=== PATIENT | female | born 1955 | race Caucasian/White ===

== ENCOUNTER 2019-03-15 09:22 | Inpatient (IN) ==
[2019-03-15 10:21] LABS: INR 1.2; Prothrombin Time 13.6 Seconds (9.4-12.1)
[2019-03-15 10:25] LABS: Basophils # 0.1 K/mcL (0.0-0.2); Basophils % 1.1 %; Eosinophils # 0.1 K/mcL (0.0-0.6); Hematocrit 37.8 % (35.3-44.9); Hemoglobin 12.5 g/dL (11.5-15.4); Immature Granulocytes % 0.2 % (0-4); Lymphocytes # 0.9 K/mcL (0.6-4.6); Lymphocytes % 19.1 %; Mean Corpuscular HGB Conc 33.1 g/dL (31.6-35.5); Mean Corpuscular Hemoglobin 32.8 pg (28.0-33.3); Mean Corpuscular Volume 99.2 fL (83.0-100.0); Mean Platelet Volume 11.9 fL (9.4-12.4); Monocytes # 0.4 K/mcL (0.0-1.3); Monocytes % 7.7 %; Neutrophils # 3.2 K/mcL (1.6-8.9); Platelet Count 207 K/mcL (140-400); Red Blood Count 3.81 M/mcL (3.82-4.97); Red Cell Distribution Width 14.6 % (11.5-14.5); Segmented Neutrophils % 69.9 %; White Blood Count 4.6 K/mcL (4.3-11.1)
[2019-03-15 10:27] LABS: Alanine Aminotransferase 47 Units/L (7-52); Albumin 3.8 g/dL (3.5-5.7); Albumin/Globulin Ratio 1.4 (1.1-2.2); Alkaline Phosphatase 95 Units/L (34-104); Aspartate Amino Transferase 48 Units/L (13-39); BUN/Creatinine Ratio 30 (6-26); Bilirubin,Total 0.5 mg/dL (0.3-1.0); Blood Urea Nitrogen 30 mg/dL (8-23); Calcium 8.6 mg/dL (8.6-10.3); Carbon Dioxide 30 mEq/L (23-29); Chloride 98 mEq/L (98-107); Globulin 2.7 g/dL (2.4-3.5); Glucose 109 mg/dL (70-105); Osmolality,Calculated 301 (280-300); Potassium 3.3 mEq/L (3.5-5.1); Sodium 142 mEq/L (136-145); Total Protein 6.5 g/dL (6.4-8.9); Troponin I 0.04 ng/mL (< 0.04); eGFR For African Americans > 60 (> 60); eGFR For Non-African Americans 56 (> 60)
[2019-03-15] MEDS ORDERED: Aspirin 325 MG TABLET PO ONE (10:33)
[2019-03-15] MEDS ORDERED: Furosemide 40 MG/4 ML VIAL IVP ONE (10:34)
[2019-03-15] MEDS ORDERED: Naloxone 0.4 MG/ML INJ IVP PRN (11:47)
[2019-03-15] MEDS ORDERED: Ipratropium/Albuterol Neb 3 ML IH PRN (15:38)
[2019-03-15] MEDS: Furosemide 40 MG/4 ML VIAL IVP SCH (17:08)
[2019-03-16 01:53] LABS: Basophils # 0.1 K/mcL (0.0-0.2); Basophils % 0.8 %; Eosinophils # 0.1 K/mcL (0.0-0.6); Eosinophils % 1.5 %; Hematocrit 33.8 % (35.3-44.9); Immature Granulocytes % 0.2 % (0-4); Lymphocytes # 1.1 K/mcL (0.6-4.6); Lymphocytes % 16.1 %; Mean Corpuscular HGB Conc 31.7 g/dL (31.6-35.5); Mean Corpuscular Hemoglobin 32.5 pg (28.0-33.3); Mean Corpuscular Volume 102.7 fL (83.0-100.0); Mean Platelet Volume 11.9 fL (9.4-12.4); Monocytes # 0.3 K/mcL (0.0-1.3); Monocytes % 4.4 %; Neutrophils # 5.1 K/mcL (1.6-8.9); Platelet Count 187 K/mcL (140-400); Red Blood Count 3.29 M/mcL (3.82-4.97); Red Cell Distribution Width 14.4 % (11.5-14.5); White Blood Count 6.6 K/mcL (4.3-11.1)
[2019-03-16 01:57] LABS: Hemoglobin 10.7 g/dL (11.5-15.4)
[2019-03-16 02:14] LABS: Calcium 8.2 mg/dL (8.6-10.3); Potassium 3.5 mEq/L (3.5-5.1)
[2019-03-16] MEDS: Furosemide 40 MG/4 ML VIAL IVP SCH ×2 (08:10→17:04)
[2019-03-16] MEDS: Aspirin Enteric Coated 81 MG Tablet PO SCH (08:10)
[2019-03-16 14:28] LABS: Hematocrit 40.7 % (35.3-44.9)
[2019-03-16] MEDS: Pantoprazole 40 MG VIAL IVP SCH (17:04)
[2019-03-17 05:06] LABS: Basophils # 0.1 K/mcL (0.0-0.2); Basophils % 1.1 %; Eosinophils # 0.1 K/mcL (0.0-0.6); Eosinophils % 1.7 %; Hematocrit 33.2 % (35.3-44.9); Immature Granulocytes % 0.4 % (0-4); Lymphocytes # 1.2 K/mcL (0.6-4.6); Lymphocytes % 25.6 %; Mean Corpuscular HGB Conc 31.9 g/dL (31.6-35.5); Mean Corpuscular Hemoglobin 32.1 pg (28.0-33.3); Mean Corpuscular Volume 100.6 fL (83.0-100.0); Monocytes # 0.3 K/mcL (0.0-1.3); Monocytes % 7.1 %; Neutrophils # 3.1 K/mcL (1.6-8.9); Platelet Count 187 K/mcL (140-400); Red Cell Distribution Width 14.3 % (11.5-14.5); Segmented Neutrophils % 64.1 %; White Blood Count 4.8 K/mcL (4.3-11.1)
[2019-03-17 05:07] LABS: Hemoglobin 10.6 g/dL (11.5-15.4)
[2019-03-17 05:27] LABS: BUN/Creatinine Ratio 26 (6-26); Blood Urea Nitrogen 22 mg/dL (8-23); Calcium 8.2 mg/dL (8.6-10.3); Carbon Dioxide 32 mEq/L (23-29); Chloride 102 mEq/L (98-107); Glucose 110 mg/dL (70-105); Osmolality,Calculated 290 (280-300); Potassium 3.5 mEq/L (3.5-5.1); Sodium 138 mEq/L (136-145); eGFR For African Americans > 60 (> 60); eGFR For Non-African Americans > 60 (> 60)
[2019-03-17] MEDS: Pantoprazole 40 MG VIAL IVP SCH ×2 (06:06→18:09)
[2019-03-17] MEDS: Furosemide 40 MG/4 ML VIAL IVP SCH ×2 (09:26→18:09)
[2019-03-17] MEDS ORDERED: Propofol 500 MG/50 ML INFUS..BTL ONE (14:39)
[2019-03-17] MEDS ORDERED: Lidocaine -MPF 2% 2 ML VIAL ONE (14:39)
[2019-03-17] MEDS: Aspirin Enteric Coated 81 MG Tablet PO SCH (16:00)
[2019-03-17] MEDS: Cyanocobalamin (B-12) 1,000 MCG TABLET PO SCH (16:00)
[2019-03-18 03:15] LABS: Hematocrit 33.5 % (35.3-44.9); Hemoglobin 10.6 g/dL (11.5-15.4); Mean Corpuscular HGB Conc 31.6 g/dL (31.6-35.5); Mean Corpuscular Hemoglobin 32.6 pg (28.0-33.3); Mean Corpuscular Volume 103.1 fL (83.0-100.0); Mean Platelet Volume 12.1 fL (9.4-12.4); Platelet Count 185 K/mcL (140-400); Red Blood Count 3.25 M/mcL (3.82-4.97); White Blood Count 5.3 K/mcL (4.3-11.1)
[2019-03-18 03:28] LABS: BUN/Creatinine Ratio 26 (6-26); Blood Urea Nitrogen 23 mg/dL (8-23); Calcium 8.2 mg/dL (8.6-10.3); Carbon Dioxide 38 mEq/L (23-29); Chloride 98 mEq/L (98-107); Glucose 85 mg/dL (70-105); Magnesium 1.7 mg/dL (1.6-2.6); Osmolality,Calculated 293 (280-300); Potassium 3.3 mEq/L (3.5-5.1); Sodium 140 mEq/L (136-145); eGFR For African Americans > 60 (> 60); eGFR For Non-African Americans > 60 (> 60)
[2019-03-18] MEDS: Pantoprazole 40 MG VIAL IVP SCH (06:27)
[2019-03-18] MEDS: Aspirin Enteric Coated 81 MG Tablet PO SCH (09:44)
[2019-03-18] MEDS: Cyanocobalamin (B-12) 1,000 MCG TABLET PO SCH (09:45)
[2019-03-18] MEDS: Furosemide 40 MG/4 ML VIAL IVP SCH (09:45)
[2019-03-18 10:36] VITALS: BP 114/90
[2019-03-19] MEDS ORDERED: Metoprolol XL (24 HR) Succ 25 MG TAB.ER.24H PO SCH (09:00)
== END 2019-03-18 16:00 | disposition home or self-care (01) | DRG 292 ==
LOC: 2NENU 09:22 → EMEROOARM 09:22 → SUATTDRO 11:44 → 2NENU 12:42
PROVIDERS: ADMIT Internal Medicine; ATTEND Internal Medicine

== ENCOUNTER 2019-11-30 11:06 | Inpatient (IN) ==
[2019-11-30] MEDS ORDERED: Morphine Sulfate 2 MG/ML SYRINGE IVP STA (11:16)
[2019-11-30] MEDS ORDERED: 0.9 % Sodium Chloride 1,000 ML IVC ONE (11:16)
[2019-11-30] MEDS ORDERED: Isovue-370 500 ML BOTTLE IVP ONE (11:17)
[2019-11-30 11:35] LABS: Eosinophils % 0.2 %; Red Blood Count 6.32 M/mcL (3.82-4.97); Red Cell Distribution Width 21.4 % (11.5-14.5); Segmented Neutrophils % 81.7 %
[2019-11-30 11:37] LABS: Basophils # 0.1 K/mcL (0.0-0.2); Basophils % 0.5 %; Hemoglobin 18.7 g/dL (11.5-15.4); Immature Granulocytes % 0.4 % (0-4); Immature Platelets 10.5 % (1.1-6.1); Lymphocytes # 1.5 K/mcL (0.6-4.6); Lymphocytes % 11.8 %; Mean Corpuscular Hemoglobin 29.6 pg (28.0-33.3); Mean Corpuscular Volume 92.4 fL (83.0-100.0); Monocytes # 0.7 K/mcL (0.0-1.3); Monocytes % 5.4 %; Neutrophils # 10.5 K/mcL (1.6-8.9); Platelet Count 173 K/mcL (140-400); White Blood Count 12.9 K/mcL (4.3-11.1)
[2019-11-30 11:41] LABS: Hematocrit 58.4 % (35.3-44.9)
[2019-11-30] MEDS ORDERED: Ondansetron 4 MG/2 ML VIAL IVP ONE (11:41)
[2019-11-30 11:53] LABS: Alanine Aminotransferase 34 Units/L (7-52); Albumin 4.6 g/dL (3.5-5.7); Albumin/Globulin Ratio 1.4 (1.1-2.2); Alkaline Phosphatase 89 Units/L (34-104); Aspartate Amino Transferase 32 Units/L (13-39); BUN/Creatinine Ratio 44 (6-26); Bilirubin,Direct 0.2 mg/dL (0.0-0.2); Bilirubin,Indirect 0.5 mg/dL (0.0-1.0); Bilirubin,Total 0.7 mg/dL (0.3-1.0); Blood Urea Nitrogen 42 mg/dL (8-23); Calcium 11.2 mg/dL (8.6-10.3); Carbon Dioxide 25 mEq/L (23-29); Chloride 96 mEq/L (98-107); Globulin 3.3 g/dL (2.4-3.5); Glucose 182 mg/dL (70-105); Lipase 13 Units/L (11-82); Osmolality,Calculated 289 (280-300); Potassium 5.7 mEq/L (3.5-5.1); Sodium 132 mEq/L (136-145); Total Protein 7.9 g/dL (6.4-8.9); eGFR For African Americans > 60 (> 60); eGFR For Non-African Americans 59 (> 60)
[2019-11-30 11:55] LABS: Bilirubin,Urine Small (Negative); Blood,Urine Negative (Negative); Calcium Oxalate Crystals,Urine Present; Clarity,Urine Turbid (Clear); Color,Urine Yellow (Yellow); Glucose,Urine (UA) Normal (Normal); Hyaline Casts,Urine Moderate per lpf (None Seen); Ketones,Urine Trace mg/dL (Negative); Leukocyte Esterase,Urine Large (Negative); Mucus,Urine Few per lpf (None-Few); Nitrite,Urine Negative (Negative); Protein,Urine >=600 mg/dL (Neg-Trace); Renal Epithelial Cells,Urine Few per hpf (None-Few); Specific Gravity,Urine > 1.030 (1.010-1.025); Squamous Epithelial Cell,Urine Few per hpf (None-Few); Transitional Epi Cells,Urine Few per hpf (None-Few); WBC,Urine 50-100 per hpf (0-3)
[2019-11-30] MEDS ORDERED: 0.9 % Sodium Chloride 500 ML IVC ONE (12:16)
[2019-11-30] MEDS ORDERED: cefTRIAXone 1,000 MG in Water for inj. (sterile) 10 ML IVP ONE (12:16)
[2019-11-30] MEDS ORDERED: Calcium Gluconate 1gm/50mL 1 GM/50 ML BAG IVPB ONE (12:19)
[2019-11-30] MEDS ORDERED: Acetaminophen 325 MG TABLET PO PRN (14:01)
[2019-11-30] MEDS ORDERED: Naloxone 0.4 MG/ML INJ IVP PRN (14:01)
[2019-11-30] MEDS ORDERED: Ondansetron 4 MG/2 ML VIAL IVP PRN (14:01)
[2019-11-30 14:19] LABS: BUN/Creatinine Ratio 50 (6-26); Blood Urea Nitrogen 41 mg/dL (8-23); Calcium 9.6 mg/dL (8.6-10.3); Carbon Dioxide 25 mEq/L (23-29); Chloride 102 mEq/L (98-107); Glucose 117 mg/dL (70-105); Osmolality,Calculated 285 (280-300); Potassium 5.9 mEq/L (3.5-5.1); Sodium 132 mEq/L (136-145); eGFR For African Americans > 60 (> 60); eGFR For Non-African Americans > 60 (> 60)
[2019-11-30] MEDS ORDERED: D5% in Water 1,000 ML IVC PRN (15:04)
[2019-11-30] MEDS ORDERED: Dextrose Gel 15 GM/37.5 ML TUBE PO PRN ×2 (15:04)
[2019-11-30] MEDS ORDERED: *HR* Dextrose 50 % in Water (Vial) 50 ML VIAL IVP PRN (15:04)
[2019-11-30] MEDS: 0.9 % Sodium Chloride 1,000 ML IVC SCH (15:14)
[2019-11-30] MEDS ORDERED: Ipratropium/Albuterol Neb 3 ML IH PRN (15:24)
[2019-11-30] MEDS ORDERED: Lidocaine Viscous Oral Soln 15 ML SOLUTION MM STA (15:57)
[2019-11-30] MEDS ORDERED: Piperacillin/Tazobactam 3.375 GM in 0.9 % Sodium Chloride Mini Bag 100 ML IVPB SCH (16:00)
[2019-11-30] MEDS: Morphine Sulfate 2 MG/ML SYRINGE IVP PRN ×2 (16:37→22:53)
[2019-11-30 16:38] LABS: Adenovirus Not Detected (Not Detect); Coronavirus 229E Not Detected (Not Detect); Coronavirus HKU1 Not Detected (Not Detect); Coronavirus NL63 Not Detected (Not Detect); Coronavirus OC43 Not Detected (Not Detect)
[2019-11-30 16:40] LABS: Bordetella Pertussis Not Detected (Not Detect); Human Metapneumovirus Not Detected (Not Detect); Human Rhinovirus/Enterovirus Not Detected (Not Detect); Influenza A Subtype 2009 H1 Not Detected (Not Detect); Influenza B Not Detected (Not Detect); Parainfluenza Virus 1 Not Detected (Not Detect); Parainfluenza Virus 2 Not Detected (Not Detect); Parainfluenza Virus 3 Not Detected (Not Detect); Parainfluenza Virus 4 Not Detected (Not Detect); Respiratory Syncytial Virus Not Detected (Not Detect); SARS-CoV-2 Not Detected (Not Detect)
[2019-11-30 16:41] LABS: Chlamydophila pneumoniae Not Detected (Not Detect); Mycoplasma pneumoniae Not Detected (Not Detect)
[2019-11-30 18:22] LABS: Red Cell Distribution Width 21.2 % (11.5-14.5)
[2019-11-30 18:24] LABS: Basophils # 0.1 K/mcL (0.0-0.2); Basophils % 0.5 %; Eosinophils % 0.4 %; Hematocrit 51.8 % (35.3-44.9); Hemoglobin 16.8 g/dL (11.5-15.4); Immature Granulocytes % 0.3 % (0-4); Immature Platelets 10.1 % (1.1-6.1); Lymphocytes # 1.6 K/mcL (0.6-4.6); Lymphocytes % 15.2 %; Mean Corpuscular HGB Conc 32.4 g/dL (31.6-35.5); Mean Corpuscular Hemoglobin 29.8 pg (28.0-33.3); Monocytes # 0.7 K/mcL (0.0-1.3); Monocytes % 6.7 %; Neutrophils # 7.9 K/mcL (1.6-8.9); Platelet Count 152 K/mcL (140-400); Red Blood Count 5.63 M/mcL (3.82-4.97); Segmented Neutrophils % 76.9 %; White Blood Count 10.3 K/mcL (4.3-11.1)
[2019-11-30 18:39] LABS: BUN/Creatinine Ratio 55 (6-26); Blood Urea Nitrogen 38 mg/dL (8-23); Calcium 9.5 mg/dL (8.6-10.3); Carbon Dioxide 22 mEq/L (23-29); Chloride 102 mEq/L (98-107); Glucose 127 mg/dL (70-105); Magnesium 1.3 mg/dL (1.6-2.6); Osmolality,Calculated 283 (280-300); Potassium 4.9 mEq/L (3.5-5.1); Sodium 131 mEq/L (136-145); eGFR For African Americans > 60 (> 60); eGFR For Non-African Americans > 60 (> 60)
[2019-11-30] MEDS: Insulin LISPRO 300 UNITS/3 ML VIAL SQ SCH (18:40)
[2019-11-30] MEDS ORDERED: Heparin 1,000 UNITS/500 mL 500 ML ONE (18:41)
[2019-11-30] MEDS: Piperacillin/Tazobactam 3.375 GM in 0.9 % Sodium Chloride Mini Bag 100 ML IVPB SCH (18:41)
[2019-11-30 18:46] LABS: Troponin I < 0.03 ng/mL (< 0.04)
[2019-11-30 18:58] LABS: Thyroid Stimulating Hormone 7.499 mcIU/mL (0.340-5.600)
[2019-11-30] MEDS ORDERED: *HR* Norepinephrine 4 MG/4 ML VIAL IVC ONE (19:24)
[2019-11-30] MEDS ORDERED: Lidocaine -MPF 2% 2 ML VIAL ONE (20:37)
[2019-11-30] MEDS ORDERED: Sacubitril/Valsartan 97/103 MG 1 TAB TABLET PO SCH (21:00)
[2019-12-01] MEDS ORDERED: Ondansetron 4 MG/2 ML VIAL ONE (00:22)
[2019-12-01] MEDS ORDERED: Lidocaine -MPF 2% 2 ML VIAL ONE (00:22)
[2019-12-01] MEDS ORDERED: Dexamethasone 4 MG/ML VIAL ONE (00:22)
[2019-12-01] MEDS ORDERED: *HR* Etomidate 40 MG/20 ML VIAL IVP ONE (00:23)
[2019-12-01] MEDS ORDERED: *HR* FentaNYL (PF) 100 MCG/2 ML VIAL ONE (00:24)
[2019-12-01] MEDS ORDERED: EPHEDrine 50 MG/ML VIAL ONE (00:30)
[2019-12-01] MEDS: Piperacillin/Tazobactam 3.375 GM in 0.9 % Sodium Chloride Mini Bag 100 ML IVPB SCH ×4 (00:31→23:23)
[2019-12-01] MEDS: Insulin LISPRO 300 UNITS/3 ML VIAL SQ SCH ×3 (00:41→18:07)
[2019-12-01] MEDS ORDERED: Albumin Human 5% 12.5 GM/250 ML IV.SOLN IVPB ONE (01:21)
[2019-12-01] MEDS ORDERED: *HR* EPINEPHrine 1 MG/10 ML SYRINGE ONE (02:02)
[2019-12-01] MEDS ORDERED: Albumin Human 5% 12.5 GM/250 ML IV.SOLN ONE (03:04)
[2019-12-01] MEDS ORDERED: *HR* Labetalol 20 MG/4 ML SYRINGE IVP PRN (04:02)
[2019-12-01] MEDS ORDERED: *HR* Promethazine 25 MG/ML VIAL IVP PRN (04:02)
[2019-12-01] MEDS ORDERED: *HR* HYDROMORPHONE 2 MG/ML VIAL ONE (04:24)
[2019-12-01] MEDS: *HR* HYDROmorphone (PF) 1 MG/ML SYRINGE IVP PRN ×2 (04:55→05:07)
[2019-12-01] MEDS: 0.9 % Sodium Chloride 1,000 ML IVC SCH (06:00)
[2019-12-01 06:21] LABS: Basophils % 0.3 %; Eosinophils % 0.2 %; Hematocrit 44.1 % (35.3-44.9); Lymphocytes # 0.6 K/mcL (0.6-4.6); Lymphocytes % 9.6 %; Mean Corpuscular HGB Conc 31.5 g/dL (31.6-35.5); Mean Corpuscular Hemoglobin 29.8 pg (28.0-33.3); Mean Corpuscular Volume 94.4 fL (83.0-100.0); Mean Platelet Volume 10.6 fL (9.4-12.4); Monocytes # 0.2 K/mcL (0.0-1.3); Monocytes % 4.1 %; Platelet Count 131 K/mcL (140-400); Red Blood Count 4.67 M/mcL (3.82-4.97); Red Cell Distribution Width 21.1 % (11.5-14.5); Segmented Neutrophils % 85.8 %; White Blood Count 5.8 K/mcL (4.3-11.1)
[2019-12-01 06:23] LABS: Hemoglobin 13.9 g/dL (11.5-15.4)
[2019-12-01] MEDS ORDERED: Dextrose Gel 15 GM/37.5 ML TUBE PO PRN ×2 (06:31)
[2019-12-01] MEDS ORDERED: Naloxone 0.4 MG/ML INJ IVP PRN (06:31)
[2019-12-01] MEDS ORDERED: Morphine PCA 30 MG/ 30 ML 30 ML PCA.VIAL IVC PRN (06:31)
[2019-12-01] MEDS ORDERED: D5% in Water 1,000 ML IVC PRN (06:31)
[2019-12-01] MEDS ORDERED: 0.9 % Sodium Chloride 1,000 ML IVC SCH ×2 (06:31→14:00)
[2019-12-01] MEDS ORDERED: Ipratropium/Albuterol Neb 3 ML IH PRN (06:31)
[2019-12-01] MEDS ORDERED: Ondansetron 4 MG/2 ML VIAL IVP PRN (06:31)
[2019-12-01] MEDS ORDERED: *HR* Dextrose 50 % in Water (Vial) 50 ML VIAL IVP PRN (06:31)
[2019-12-01 06:38] LABS: BUN/Creatinine Ratio 54 (6-26); Blood Urea Nitrogen 37 mg/dL (8-23); Calcium 8.6 mg/dL (8.6-10.3); Carbon Dioxide 23 mEq/L (23-29); Chloride 103 mEq/L (98-107); Glucose 173 mg/dL (70-105); Magnesium 1.6 mg/dL (1.6-2.6); Osmolality,Calculated 291 (280-300); Potassium 4.8 mEq/L (3.5-5.1); Sodium 134 mEq/L (136-145); eGFR For African Americans > 60 (> 60); eGFR For Non-African Americans > 60 (> 60)
[2019-12-01] MEDS: *HR* Heparin 5,000 UNIT/ML VIAL SQ SCH ×2 (06:59→18:06)
[2019-12-01] MEDS: *HR* Metoprolol 5 MG/5 ML VIAL IVP SCH ×3 (07:04→18:07)
[2019-12-01] MEDS: Levothyroxine Sodium 100 MCG VIAL IVP SCH (08:26)
[2019-12-01] MEDS: Pantoprazole 40 MG VIAL IVP SCH (08:26)
[2019-12-01] MEDS: Furosemide 40 MG/4 ML VIAL IVP SCH (08:26)
[2019-12-01] MEDS: Nicotine 14 MG PATCH.TD24 TD SCH (08:28)
[2019-12-01] MEDS: Acetaminophen IV 1,000 MG/100 ML INFUS..BTL IVPB SCH ×4 (08:30→23:22)
[2019-12-01] MEDS ORDERED: Multivit/Ca/Min/Fe/FA 1 TAB TABLET PO SCH (09:00)
[2019-12-01] MEDS ORDERED: Aspirin Enteric Coated 81 MG Tablet PO SCH (09:00)
[2019-12-01] MEDS ORDERED: Nicotine 14 MG PATCH.TD24 TD SCH (09:00)
[2019-12-01] MEDS ORDERED: Cyanocobalamin (B-12) 1,000 MCG TABLET PO SCH (09:00)
[2019-12-01] MEDS ORDERED: Spironolactone 25 MG TABLET PO SCH (09:00)
[2019-12-01] MEDS ORDERED: rOPINIRole 0.25 MG TABLET PO SCH (09:00)
[2019-12-01] MEDS ORDERED: Metoprolol XL (24 HR) Succ 25 MG TAB.ER.24H PO SCH (09:00)
[2019-12-01 11:28] LABS: Estimated Average Glucose 240 mg/dl
[2019-12-02] MEDS: 0.9 % Sodium Chloride 1,000 ML IVC SCH ×2 (00:11→05:54)
[2019-12-02] MEDS: *HR* Metoprolol 5 MG/5 ML VIAL IVP SCH ×5 (00:12→23:47)
[2019-12-02] MEDS: Insulin LISPRO 300 UNITS/3 ML VIAL SQ SCH ×6 (00:17→20:28)
[2019-12-02 02:01] LABS: Basophils % 0.4 %; Eosinophils % 0.4 %; Hematocrit 43.6 % (35.3-44.9); Immature Granulocytes % 0.1 % (0-4); Immature Platelets 9.5 % (1.1-6.1); Lymphocytes % 14.1 %; Mean Corpuscular HGB Conc 32.1 g/dL (31.6-35.5); Mean Corpuscular Hemoglobin 29.9 pg (28.0-33.3); Mean Corpuscular Volume 93.2 fL (83.0-100.0); Monocytes # 0.4 K/mcL (0.0-1.3); Monocytes % 6.5 %; Neutrophils # 5.3 K/mcL (1.6-8.9); Platelet Count 105 K/mcL (140-400); Red Blood Count 4.68 M/mcL (3.82-4.97); Red Cell Distribution Width 20.7 % (11.5-14.5); Segmented Neutrophils % 78.5 %; White Blood Count 6.8 K/mcL (4.3-11.1)
[2019-12-02 02:23] LABS: BUN/Creatinine Ratio 47 (6-26); Blood Urea Nitrogen 29 mg/dL (8-23); Calcium 8.3 mg/dL (8.6-10.3); Carbon Dioxide 24 mEq/L (23-29); Chloride 101 mEq/L (98-107); Glucose 96 mg/dL (70-105); Magnesium 1.7 mg/dL (1.6-2.6); Osmolality,Calculated 284 (280-300); Potassium 4.1 mEq/L (3.5-5.1); Sodium 134 mEq/L (136-145); eGFR For African Americans > 60 (> 60); eGFR For Non-African Americans > 60 (> 60)
[2019-12-02 03:46] LABS: Anisocytosis 1+ (Not Present); Platelet Estimate Slight Decrease (Normal)
[2019-12-02] MEDS: *HR* Heparin 5,000 UNIT/ML VIAL SQ SCH ×2 (05:37→17:30)
[2019-12-02] MEDS: Acetaminophen IV 1,000 MG/100 ML INFUS..BTL IVPB SCH ×4 (05:45→23:45)
[2019-12-02] MEDS: Levothyroxine Sodium 100 MCG VIAL IVP SCH (09:16)
[2019-12-02] MEDS: Furosemide 40 MG/4 ML VIAL IVP SCH (09:16)
[2019-12-02] MEDS: Pantoprazole 40 MG VIAL IVP SCH (09:16)
[2019-12-02] MEDS: Piperacillin/Tazobactam 3.375 GM in 0.9 % Sodium Chloride Mini Bag 100 ML IVPB SCH ×3 (09:17→23:46)
[2019-12-02] MEDS: Nicotine 14 MG PATCH.TD24 TD SCH (09:18)
[2019-12-03 05:41] LABS: BUN/Creatinine Ratio 33 (6-26); Blood Urea Nitrogen 20 mg/dL (8-23); Calcium 8.4 mg/dL (8.6-10.3); Carbon Dioxide 28 mEq/L (23-29); Chloride 99 mEq/L (98-107); Glucose 118 mg/dL (70-105); Osmolality,Calculated 280 (280-300); Potassium 3.5 mEq/L (3.5-5.1); Sodium 133 mEq/L (136-145); eGFR For African Americans > 60 (> 60); eGFR For Non-African Americans > 60 (> 60)
[2019-12-03] MEDS: *HR* Metoprolol 5 MG/5 ML VIAL IVP SCH ×4 (06:01→23:34)
[2019-12-03] MEDS: Acetaminophen IV 1,000 MG/100 ML INFUS..BTL IVPB SCH ×4 (06:02→23:51)
[2019-12-03] MEDS: *HR* Heparin 5,000 UNIT/ML VIAL SQ SCH ×2 (06:02→16:31)
[2019-12-03] MEDS: 0.9 % Sodium Chloride 1,000 ML IVC SCH (06:08)
[2019-12-03] MEDS: Insulin LISPRO 300 UNITS/3 ML VIAL SQ SCH ×4 (08:01→21:49)
[2019-12-03] MEDS: Furosemide 40 MG/4 ML VIAL IVP SCH (09:19)
[2019-12-03] MEDS: Pantoprazole 40 MG VIAL IVP SCH (09:19)
[2019-12-03] MEDS: Piperacillin/Tazobactam 3.375 GM in 0.9 % Sodium Chloride Mini Bag 100 ML IVPB SCH ×3 (09:19→23:45)
[2019-12-03] MEDS: Levothyroxine Sodium 100 MCG VIAL IVP SCH (09:19)
[2019-12-03] MEDS: Nicotine 14 MG PATCH.TD24 TD SCH (09:20)
[2019-12-04] MEDS: 0.9 % Sodium Chloride 1,000 ML IVC SCH (01:46)
[2019-12-04 02:57] LABS: BUN/Creatinine Ratio 28 (6-26); Blood Urea Nitrogen 15 mg/dL (8-23); Calcium 8.4 mg/dL (8.6-10.3); Carbon Dioxide 28 mEq/L (23-29); Chloride 99 mEq/L (98-107); Glucose 95 mg/dL (70-105); Magnesium 1.4 mg/dL (1.6-2.6); Osmolality,Calculated 277 (280-300); Potassium 3.3 mEq/L (3.5-5.1); Sodium 133 mEq/L (136-145); eGFR For African Americans > 60 (> 60); eGFR For Non-African Americans > 60 (> 60)
[2019-12-04] MEDS: *HR* Metoprolol 5 MG/5 ML VIAL IVP SCH ×2 (06:27→11:42)
[2019-12-04] MEDS: Acetaminophen IV 1,000 MG/100 ML INFUS..BTL IVPB SCH ×2 (06:36→14:14)
[2019-12-04] MEDS: *HR* Heparin 5,000 UNIT/ML VIAL SQ SCH ×2 (06:37→17:24)
[2019-12-04] MEDS: Insulin LISPRO 300 UNITS/3 ML VIAL SQ SCH ×4 (09:16→20:52)
[2019-12-04] MEDS: Nicotine 14 MG PATCH.TD24 TD SCH (09:18)
[2019-12-04] MEDS: Furosemide 40 MG/4 ML VIAL IVP SCH (09:18)
[2019-12-04] MEDS: Levothyroxine Sodium 100 MCG VIAL IVP SCH (09:18)
[2019-12-04] MEDS: Pantoprazole 40 MG VIAL IVP SCH (09:19)
[2019-12-04] MEDS: Piperacillin/Tazobactam 3.375 GM in 0.9 % Sodium Chloride Mini Bag 100 ML IVPB SCH (19:38)
[2019-12-04] MEDS ORDERED: hydrALAZINE 25 MG TABLET PO SCH (21:00)
[2019-12-05] MEDS: *HR* Heparin 5,000 UNIT/ML VIAL SQ SCH (05:38)
[2019-12-05] MEDS: Nicotine 14 MG PATCH.TD24 TD SCH (08:13)
[2019-12-05] MEDS: Insulin LISPRO 300 UNITS/3 ML VIAL SQ SCH (08:19)
[2019-12-05] MEDS ORDERED: Bumetanide 1 MG TABLET PO SCH (09:00)
[2019-12-05] MEDS ORDERED: Metoprolol XL (24 HR) Succ 25 MG TAB.ER.24H PO SCH (09:00)
[2019-12-05 09:09] LABS: Hematocrit 47.2 % (35.3-44.9); Hemoglobin 15.1 g/dL (11.5-15.4); Mean Corpuscular Hemoglobin 29.7 pg (28.0-33.3); Mean Corpuscular Volume 92.9 fL (83.0-100.0); Mean Platelet Volume 10.3 fL (9.4-12.4); Platelet Count 210 K/mcL (140-400); Red Blood Count 5.08 M/mcL (3.82-4.97); Red Cell Distribution Width 19.9 % (11.5-14.5); White Blood Count 6.5 K/mcL (4.3-11.1)
[2019-12-05 09:12] LABS: BUN/Creatinine Ratio 22 (6-26); Blood Urea Nitrogen 15 mg/dL (8-23); Calcium 9.3 mg/dL (8.6-10.3); Carbon Dioxide 29 mEq/L (23-29); Chloride 101 mEq/L (98-107); Glucose 136 mg/dL (70-105); Osmolality,Calculated 281 (280-300); Potassium 3.7 mEq/L (3.5-5.1); Sodium 134 mEq/L (136-145); eGFR For African Americans > 60 (> 60); eGFR For Non-African Americans > 60 (> 60)
[2019-12-05 10:33] VITALS: BP 115/62
== END 2019-12-05 10:38 | disposition home or self-care (01) | DRG 853 ==
LOC: EMEROOARM 11:06 → 3ANU 11:06 → SUATTDRO 14:10 → 3ANU 16:47
PROVIDERS: ADMIT Pharmacist; ATTEND Family Medicine